=== PATIENT | male | born 1945 | race Caucasian/White ===

== ENCOUNTER 2018-09-21 13:30 | Outpatient (RCR) | payer MEDICARE, OTHER, SELFPAY ==
--- NOTE | 2018-08-31 11:11 | HP.PTEVAL_ITS ---
Patient's Visit Information CARIE PARKS is a 73 year old M referred to Physical Therapy by KIKI FLORES with a diagnosis of Left Femur Nailing. Date of Evaluation: 08/30/18 Physical Therapist: Adrienne Conn DPT - Visit Plan Frequency: 2x /Week Duration: 4 Weeks Plan: Focus on functional mobility- stairs & ambulation. - Subjective Findings: Patient reports that he had pain for 3 months and could not get rid of the pain. Had 2 dark spots on his x-ray of the left hip, right hip and lungs- they then x-rayed more and they diagnosed him with cancer. They placed a adrian down the femur to help support the bone about 2 weeks ago. They recommend therapy and tomorrow he goes to see the radiologist- is unsure of how many times he will have radiation. First treatment is scheduled for the . He goes back to the MD that did his hip on Wednesday. He came home after surgery- [place] a basement that he does not have to use- can help as needed. Most of the time he is painfree. Prior to surgery he has a jolt every once in awhile above a 10/10 prior to surgery. He is using pain medication currently one at night and one in the am. When it runs out he plans to stop the medication- can?t remember the name of the medication but its not addictive. Fully I prior to the hip pain starting to bother him. Is using the walker all the time but he does not get out of the house very often. PMHx: HTN, is unsure where his cancer started. Meds: unsure. Goal: get the strength back so he does not need to use the walker. - Objective Posture: FH, RS increased kyphosis- does not correct with tactile or verbal cueing. Gait: antalgic- uses FWW and is stooped over- does not picker tender helper feet left>right and does catch his toes. SLS: will weight shift with UE A. HR/TR: able with UE A. Stairs: asc recip with 2 HR- desc non recip sideways with 2 HR. ROM: WFL in all planes. Strength: 4+/5 throughout bilateral LE. Sit to Stand: uses UE for propulsion. Flex:HS: severe, Gastroc: moderate - Goals Goal 1:: Patient will be I with HEP and progression Goal Time Frame: 4-6 Weeks Goal 2:: Patient will ambulate >300 feet LRD with mod I Goal Time Frame: 4-6 Weeks Goal 3:: Patient will asc/desc 8 recip safely with 1 HR Goal Time Frame: 4-6 Weeks Goal 4:: Patient will sls for 5 seconds Goal Time Frame: 4-6 Weeks Goal 5:: Patient will perform 8 sit to stands in 30 seconds without UE A Goal Time Frame: 4-6 Weeks - Rehabilitation Potential Physical Therapy Diagnosis: Patient presents with hypomobility- he has decreased strenth and muscular endurance leading to abnormal gait and incrased diffiulty with ADL's. Rehabilitation Potential: Fair - Anticipated Interventions Patient/Client Instruction: Educate patient on: Benefits of Fitness Program Therapeutic Exercise to Include: Strength training, Endurance training, Balance training, Agility training, Body mechanics, Postural training, Flexibilty training, Gait and locomotor training, Dynamic Lumbar Stabilization For the Purpose of:: To improve muscle performance and motor function TENS: No Cryotherapy (ice pack, ice massage): Yes Thermo therapy (hot pack): Yes Ultrasound (thermal/non thermal): No Thank you for the opportunity to evaluate your patient. For Medicare and Medicare HMO plans, please review the plan of care and approve it. It will need to be FAXED BACK to us at [phone] for Medicare purposes. For Medicare only, by signing this I certify the plan of care. Please let me know if there are questions or concerns regarding this plan of care. Physician Signature: Date:
--- NOTE | 2018-11-25 09:55 | HP.PTDCNRP_ITS ---
HP - Discharge Summary (1) - Patient Information CARIE PARKS was seen in my office for initial evaluation on 08/30/18. The following Plan of Care was established for this patient: Initial Frequency: 2x /Week Initial Duration: 4 Weeks - Anticipated Interventions Patient/Client Instruction: Educate patient on: Benefits of Fitness Program Therapeutic Exercise to Include: Strength training, Endurance training, Balance training, Agility training, Body mechanics, Postural training, Flexibilty training, Gait and locomotor training, Dynamic Lumbar Stabilization For the Purpose of:: To improve muscle performance and motor function TENS: No Cryotherapy (ice pack, ice massage): Yes Thermo therapy (hot pack): Yes Ultrasound (thermal/non thermal): No This patient was last seen in our office . Pertinent comments regarding their Physical therapy will appear below: Patient has not attended PT in 4 weeks and is appropriate for d/c- return to MD for further evaluation as needed. At this point I will be discontinuing this patient from physical therapy. I w ould be happy to see this patient again in the future if found appropriate by the physician. Thank you! Adrienne Conn DPT
== END 2018-09-21 19:00 | disposition home or self-care (01) ==
LOC: PT 13:30
PROVIDERS: Family Provider Internal Medicine; PCP Internal Medicine
DX: Z47.89 Encounter for other orthopedic aftercare (principal)
CPT/HCPCS: 97110; 97162